=== PATIENT | female | born 1955 | race Native Hawaiian/Other Pacific Islander ===

== ENCOUNTER 2018-04-02 10:50 | Inpatient (IN) | payer OTHER ==
[~2018-04-02] VITALS: Ht 162.6 cm; Wt 73.1 kg
[~2018-04-02 10:50] MED LIST: GLIP10TA55 PO; HYDR25TA60 PO; LOPRESSOR100 MG PO; VERA180T12 PO
[2018-04-02 12:54] LABS: PLATELET COUNT 276 K/uL (152-353)
[2018-04-02 13:45] LABS: POTASSIUM 4.9 mmol/L (3.6-5.2); SODIUM 140 mmol/L (136-145)
[2018-04-02 14:04] VITALS: BP 141/68; TEMP 98.1; Ht 162.6 cm; Wt 73.1 kg
[2018-04-02 16:00] VITALS: BP 150/72; TEMP 98.3
[2018-04-02 20:13] VITALS: BP 135/48; TEMP 98
[2018-04-03 00:27] VITALS: BP 148/59; TEMP 98
[2018-04-03 04:00] VITALS: BP 158/62; TEMP 97.5
[2018-04-03 04:53] LABS: PLATELET COUNT 214 K/uL (152-353)
[2018-04-03 08:00] VITALS: BP 150/99; BP 160/62; TEMP 97.8; TEMP 98
[2018-04-03 12:00] VITALS: BP 189/91; TEMP 98.3
[2018-04-03 16:00] VITALS: BP 206/74; TEMP 98.2
[2018-04-03 20:00] VITALS: BP 197/82; TEMP 97.8
[2018-04-04 00:24] VITALS: BP 160/68; TEMP 97.8
[2018-04-04 04:00] VITALS: BP 149/55; TEMP 98.3
[2018-04-04 05:21] LABS: PLATELET COUNT 213 K/uL (152-353)
[2018-04-04 05:30] LABS: POTASSIUM 4.2 mmol/L (3.6-5.2)
[2018-04-04 08:00] VITALS: BP 188/88; TEMP 98.1
[2018-04-04 12:00] VITALS: BP 198/80; TEMP 98.2
[2018-04-04 16:00] VITALS: BP 188/88; TEMP 97.9
[2018-04-04 20:00] VITALS: BP 153/57; TEMP 98.3
[2018-04-05] VITALS (9 sets, daily range): BP systolic 102–212; BP diastolic 52–92; TEMP 97.5–98
[2018-04-05 04:20] LABS: PLATELET COUNT 233 K/uL (152-353)
[2018-04-05 04:40] LABS: POTASSIUM 3.6 mmol/L (3.6-5.2); SODIUM 142 mmol/L (136-145)
[2018-04-06] VITALS: BP 132/50; TEMP 98.1
[2018-04-06 04:00] VITALS: BP 129/59; TEMP 98.4
[2018-04-06 04:24] LABS: PLATELET COUNT 219 K/uL (152-353)
[2018-04-06 04:40] LABS: POTASSIUM 3.8 mmol/L (3.6-5.2); SODIUM 141 mmol/L (136-145)
[2018-04-06 08:00] VITALS: BP 138/80; TEMP 97.5
[2018-04-06 12:00] VITALS: BP 142/73; TEMP 98
== END 2018-04-06 16:27 | disposition home or self-care (01) | DRG 605 ==
LOC: MED/SURG 10:50
PROVIDERS: ADMIT Family Medicine
PROC: 0HQ0XZZ Repair Scalp Skin, External Approach (ICD-10-PCS; principal; 2018-04-02)
DX: S01.01XA Laceration without foreign body of scalp, initial encounter (principal); S06.0X1A Concussion with loss of consciousness of 30 minutes or less, initial encounter; R55 Syncope and collapse; R00.1 Bradycardia, unspecified; R01.1 Cardiac murmur, unspecified; R51 Headache; W18.39XA Other fall on same level, initial encounter; Y92.89 Other specified places as the place of occurrence of the external cause; R07.89 Other chest pain; E86.0 Dehydration
CPT/HCPCS: 36415; 80053; 81000; 82248; 82550; 83735; 83880; 84100; 84439; 84443; 84484; 85027; 85610; 87040; 90715; 93005; 93306; J1885

== ENCOUNTER 2019-08-22 10:30 | Outpatient (CLI) | payer OTHER | END 2019-08-22 22:21 | disposition home or self-care (01) | LOC: US 10:30 | DX: Z12.31 Encounter for screening mammogram for malignant neoplasm of breast (principal); N64.59 Other signs and symptoms in breast | CPT/HCPCS: G0279 ==

== ENCOUNTER 2020-11-01 12:26 | Outpatient (CLI) | payer OTHER | END 2020-11-01 21:21 | disposition home or self-care (01) | LOC: RAD 12:26 | PROVIDERS: ATTEND Nurse Practitioner | DX: M79.604 Pain in right leg (principal); R22.41 Localized swelling, mass and lump, right lower limb ==

== ENCOUNTER 2020-11-12 09:43 | Outpatient (CLI) | payer OTHER | END 2020-11-12 20:23 | disposition home or self-care (01) | LOC: MRI 09:43 → US 09:43 | PROVIDERS: ATTEND Internal Medicine | DX: H53.8 Other visual disturbances (principal); R26.81 Unsteadiness on feet; R42 Dizziness and giddiness; R51.9 Headache, unspecified; I73.9 Peripheral vascular disease, unspecified; M79.672 Pain in left foot; R22.42 Localized swelling, mass and lump, left lower limb ==

== ENCOUNTER 2022-04-08 12:03 | Emergency (ER) | payer OTHER ==
[~2022-04-08] VITALS: Ht 162.6 cm; Wt 79.8 kg
[2022-04-08 12:03] VITALS: TEMP 98
[2022-04-08 12:32] LABS: PLATELET COUNT 402 K/uL (152-353)
[2022-04-08 12:37] LABS: POTASSIUM 3.6 mmol/L (3.6-5.2)
[2022-04-08] MEDS ORDERED: NIFE30TA PO (13:36)
[2022-04-08] MEDS ORDERED: ISOS60TA6 PO (13:37)
[2022-04-08] MEDS ORDERED: TEMA15CA19 PO (13:37)
[2022-04-08] MEDS ORDERED: ENALAPRIL20 MG PO (13:39)
[2022-04-08 14:46] VITALS: BP 105/52
== END 2022-04-08 14:50 | disposition short-term general hospital (02) ==
LOC: ED 12:14
PROVIDERS: Emergency Medicine Emergency Medical Services
DX: R55 Syncope and collapse (principal); R00.1 Bradycardia, unspecified
CPT/HCPCS: 80053; 83735; 84484; 85027; 85379; 85610; 93005; 96360; 96361; 99284

== ENCOUNTER 2022-08-13 16:53 | Outpatient (CLI) | payer OTHER ==
[~2022-08-13 16:53] MED LIST changes: +ENALAPRIL20 MG PO; +ISOS60TA6 PO; +NIFE30TA PO; +TEMA15CA19 PO
== END 2022-08-13 19:55 | disposition home or self-care (01) ==
LOC: LABW 16:53
PROVIDERS: ATTEND Internal Medicine
DX: Z20.828 Contact with and (suspected) exposure to other viral communicable diseases (principal)

== ENCOUNTER 2022-12-23 09:04 | Outpatient (CLI) | payer OTHER ==
[2022-12-23 09:16] LABS: PLATELET COUNT 348 K/uL (152-353)
[2022-12-23 09:43] LABS: POTASSIUM 4.6 mmol/L (3.6-5.2)
== END 2022-12-23 19:19 | disposition home or self-care (01) ==
LOC: LABW 09:04
PROVIDERS: ATTEND Internal Medicine
DX: I87.2 Venous insufficiency (chronic) (peripheral) (principal); I89.0 Lymphedema, not elsewhere classified; I49.5 Sick sinus syndrome; R55 Syncope and collapse; I48.91 Unspecified atrial fibrillation; I10 Essential (primary) hypertension; I87.1 Compression of vein; I73.9 Peripheral vascular disease, unspecified; G72.0 Drug-induced myopathy
CPT/HCPCS: 36415; 80048; 85027; 85610

== ENCOUNTER 2023-01-11 13:44 | Emergency (ER) | payer OTHER ==
[~2023-01-11] VITALS: Ht 162.6 cm; Wt 72.6 kg
[2023-01-11 13:50] VITALS: BP 130/79; TEMP 98
== END 2023-01-11 14:16 | disposition home or self-care (01) ==
LOC: ED 13:44
DX: H11.31 Conjunctival hemorrhage, right eye (principal); H15.001 Unspecified scleritis, right eye
CPT/HCPCS: 99282

== ENCOUNTER 2023-02-25 12:45 | Outpatient (CLI) | payer OTHER ==
[2023-02-25 13:19] LABS: PLATELET COUNT 323 K/uL (152-353)
== END 2023-02-25 18:59 | disposition home or self-care (01) ==
LOC: LABW 12:45
PROVIDERS: ATTEND Internal Medicine
DX: R07.89 Other chest pain (principal); I87.2 Venous insufficiency (chronic) (peripheral); R00.1 Bradycardia, unspecified; G72.0 Drug-induced myopathy; I73.9 Peripheral vascular disease, unspecified; I87.1 Compression of vein; I10 Essential (primary) hypertension; I48.91 Unspecified atrial fibrillation; R55 Syncope and collapse; I89.0 Lymphedema, not elsewhere classified
CPT/HCPCS: 36415; 80048; 85027; 85610

== ENCOUNTER 2023-03-25 13:48 | Outpatient (CLI) | payer OTHER ==
[2023-03-25 14:17] LABS: PLATELET COUNT 345 K/uL (152-353)
[2023-03-25 14:29] LABS: POTASSIUM 3.7 mmol/L (3.6-5.2)
== END 2023-03-25 19:30 | disposition home or self-care (01) ==
LOC: LABW 13:48
PROVIDERS: ATTEND Internal Medicine
DX: G72.0 Drug-induced myopathy (principal); I48.91 Unspecified atrial fibrillation; R55 Syncope and collapse; I10 Essential (primary) hypertension; I87.1 Compression of vein; I73.9 Peripheral vascular disease, unspecified; I87.2 Venous insufficiency (chronic) (peripheral); I89.0 Lymphedema, not elsewhere classified; R94.31 Abnormal electrocardiogram [ECG] [EKG]; R07.89 Other chest pain; R00.1 Bradycardia, unspecified
CPT/HCPCS: 36415; 80048; 85027; 85610